=== PATIENT | male | born 1940 | race Caucasian/White ===

== ENCOUNTER 2016-08-12 11:04 | Inpatient (IN) | payer MEDICARE ==
[~2016-08-12] VITALS: Ht 179.1 cm; Wt 95.8 kg
[2016-08-12 11:06] VITALS: BP 136/70; PULSE 112; RESP 26; O2SAT 91
--- NOTE | 2016-08-12 11:11 | ED.REPORT ---
HPI-Dyspnea / Wheezing Date of Service Aug 12, 2016 ED Provider: Arnold Tolentino MD Pt is a 75 y.o. male who presents to the ED from c/o a cough onset 4 days ago. Pt reports associated fever, chills, SOB, weakness, myalgias and dysuria. He denies chest pain, abdominal pain, and vomiting. Pt denies recent hospitalization or antibiotic use. Nursing Notes Stated Complaint: COUGH,FROM URGENT CARE Chief Complaint: Respiratory Complaints Nursing Notes Reviewed: Yes Allergies: Coded Allergies: No Known Allergies (Unverified , 08/12/16) Scheduled Doxazosin Mesylate (Doxazosin Mesylate) 1 Mg Tablet 1 MG PO HS Fluorometholone Acetate (Flarex) 5 Ml Drops.susp 5 ML OP QID Prednisolone Acetate (Prednisolone Acetate) 5 Ml Drops.susp 5 ML OP HS General Time Seen by MD: 11:11 Chief Complaint Cough Hx Obtained From: Patient Arrived By: Walk-in Sudden in Onset?: Yes Onset Occurred: 4 days ago Symptom Duration: Since onset Past Medical History Past Medical History None reported Past Surgical History None reported Ambulatory Status Independent Review of Systems Constitutional: Reports: Chills, Fever, Weakness - generalized Respiratory: Reports: Non-productive cough, Shortness of breath Cardiovascular: Denies: Chest pain Musculoskeletal: Reports: Myalgia Complete sys rev & neg: except as marked. GI: Denies: Abdominal pain, Vomiting Physical Exam Initial Vital Signs Vital Signs (First) Date Time Temp Pulse Resp B/P Pulse Ox O2 Delivery O2 Flow Rate FiO2 08/12/16 11:06 37.4 112 26 136/70 91 Room Air 08/12/16 13:17 2 Initial VS: Reviewed Head / Eyes: Atraumatic, Normocephalic, PERRL Abdomen / GI: No distention Extremities: Vascular intact, Neuro intact Skin: Warm, Dry, No cyanosis Neurologic: Alert, Oriented, Nonfocal Psychiatric: Mood/affect normal, Behavior normal, Normal thought content General/Constitutional: Awake, Alert, Well appearing, Well developed, Well hydrated, Well nourished, Not toxic appearing Neck: Atraumatic Respiratory / Chest: Atraumatic, Breath sounds = bilat, No wheezing Pt appears dyspneic. Scattered rhonchi. Cardiovascular: Heart sounds NL, Cap refill not delayed, Peripheral circulation NL Heart Rate / Rhythm: Positive: Tachycardia ENT: Atraumatic, Airway patent Mouth: Positive: Mucous membranes dry Interpretation & Diagnostics Lab Results Interpretation Result Diagram: 08/12/16 1155 08/12/16 1155 Test 08/12/16 11:50 08/12/16 11:55 Urine Color Yellow (YELLOW) Urine Appearance Clear (CLEAR,HAZY) Urine pH 5.5 (5.0-8.0) Urine Specific [place] 1.015 (1.003-1.035) Urine Protein 100mg/dL (NEG,TRACE) Urine Glucose (UA) Negativemg/dL (NEGATIVE) Urine Ketones Tracemg/dL (NEGATIVE) Urine Occult Blood Large (NEGATIVE) Urine Nitrite Negative (NEGATIVE) Urine Bilirubin Negative (NEGATIVE) Urine Urobilinogen 4.0mg/dL (NORMAL) Urine Leukocyte Esterase Negative (NEGATIVE) Urine RBC 3-10/hpf (0-2) Urine WBC 0-5/hpf (0-5) Urine Epithelial Cells Few/hpf (NONE-MOD) Urine Crystals Amorphous urates (NONE Urine Bacteria Few/hpf (NONE-FEW) Urine Hyaline Casts Rare/lpf (NONE) Urine Granular Casts None seen (NONE SEEN) Urine Waxy Casts None seen (NONE SEEN) Urine Red Blood Cell Casts None seen (NONE SEEN) Urine White Blood Cell Casts None seen (NONE SEEN) Urine Mucus Present (None Seen) Urine Trichomonas None seen (NONE SEEN) Urine Yeast None (NONE SEEN) Urinalysis Comment None Urine Culture Reflexed Not indicated White Blood Count 15.5th/mm3 (3.8-10.1) Red Blood Count 5.25mil/mm3 (4.40-5.80) Hemoglobin 15.2g/dL (13.8-17.2) Hematocrit 43.5% (41.0-50.0) Mean Corpuscular Volume 82.9fL (81-100) Mean Corpuscular Hemoglobin 29.0pg (27.0-35.0) Mean Corpuscular Hemoglobin Concent 34.9% (32.0-37.0) Red Cell Distribution Width 13.8% (12.3-15.4) Platelet Count 223bil/L (150-400) Neutrophils (%) (Auto) 92.8% (40-74) Lymphocytes (%) (Auto) 3.4% (14-46) Monocytes (%) (Auto) 3.4% (4-12) Eosinophils (%) (Auto) 0% (0-5) Basophils (%) (Auto) 0.1% (0-3) Hold Blue Top Tube Received (Received) Sodium Level 128mEq/L (134-144) Potassium Level 4.0mEq/L (3.5-5.2) Chloride Level 90mEq/L (97-108) Carbon Dioxide Level 19mmol/L (18-29) Blood Urea Nitrogen 18mg/dL (8-27) Creatinine 1.33mg/dL (0.76-1.27) Estimat Glomerular Filtration Rate 55mL/min (>59) Glucose Level 129mg/dL (60-99) Lactic Acid Level 1.7mmol/L (0.4-2.0) Calcium Level 8.7mg/dL (8.5-10.1) Total Bilirubin 1.1mg/dL (0.0-1.2) Aspartate Amino Transf (AST/SGOT) 26U/L (0-50) Alanine Aminotransferase (ALT/SGPT) 19U/L (0-44) Alkaline Phosphatase 70U/L (25-160) Troponin T < 0.010ug/L (0.0-0.011) Pro-B-Type Natriuretic Peptide 506.2pg/mL (0-486) Total Protein 8.3g/dL (6.4-8.4) Albumin 3.7g/dL (3.4-5.0) Hold Red Top Tube Received (Received) Lab Results Interpretation: Flu A & B negative Bedside glucose is 146 General Lab Results Interp 1: CBC - leukocytosis ( ) ECG Interpretation ECG Interpretation: LVH Prolonged QT interval Time: 11:22 Interpreted by: ED physician Normal ECG Interpretation: Normal sinus rhythm Rhythm / Conduction: Tachycardia (104) X-Ray Chest Interpretation Chest Xray Interpretation: IMPRESSION: Left lower lobe pneumonia. Dictated by: Ada Anderson MD, PhD on 08/12/2016 at 12:17 Approved by: Ada Anderson MD, PhD on 08/12/2016 at 12:17 Re-Eval/Medical Decision Med Decision/Clinical Course 75-year-old male with a fever or dyspnea and cough. He is tachypneic and tachycardic on arrival with a 91% room air oxygen saturation. There is a left lower infiltrate, the patient has been blood cultured lactate is normal with given a 1 L saline bolus and Rocephin and azithromycin IV covering for community-acquired pneumonia. Influenza screen is negative. Will be admitted to the hospitalist service. Source of Hx: Old records Re-Evaluation/Progress #1: Time of Eval: 12:42 Re-Evaluation/Progress Note: Pt rechecked. Pt states he feels hypoglycemic, pt has ordered food. Discussed imaging results and need for admit. Pt understands and agrees with plan. Discussed code status, pt is full code. Re-Evaluation/Progress #2: Time of Eval: 12:51 Re-Evaluation/Progress Note: Pt blood glucose is 146. Consultation : Referral / Consult Name: Eulogio Price MD Call Returned at: 13:44 Pcts: Accepts admit Note: Discussed pt condition, accepts admit. Counseled Regarding: Diagnosis, Lab results Discharge & Departure Impression: Primary Impression: Left lower lobe pneumonia Pneumonia type: due to unspecified organism Qualified Code: J18.1 - Lobar pneumonia, unspecified organism Disposition: ADMITTED TO HOSPITAL Discharge Condition All VS Reviewed: Yes Condition: Improved Referrals: Cole Diaz MD (PCP) [facility] Attestation Portions of this note were transcribed by Annemarie Peña. I, Dr. Tolentino personally performed the history, physical exam and medical decision-making; I reviewed and confirmed the accuracy of the information in the transcribed note. Signed by: Danielle Cool, 08/12/16 and 1346. copies to: Cole Diaz MD, Donald L MD Aug 12, 2016 11:11 ANNEMARIE PEÑA Aug 12, 2016 11:17
[2016-08-12 12:09] LABS: BASOPHILS % (AUTO) 0.1 % (0-3); EOSINOPHILS % (AUTO) 0 % (0-5); MONOCYTES % (AUTO) 3.4 % (4-12); Mean Corpuscular Volume 82.9 fL (81-100); NEUTROPHILS % (AUTO) 92.8 % (40-74); Platelet Count 223 bil/L (150-400)
--- NOTE | 2016-08-12 12:19 | DRSVH ---
PROCEDURE: X-RAY CHEST, TWO VIEWS ([id number]) INDICATIONS: cough, dyspnea TECHNIQUE: 2 views of the chest were acquired. COMPARISON: None. FINDINGS: Surgical changes and devices: None. Lungs and pleura: No pleural effusions or pneumothorax. Patchy is opacity noted in the posterior asp ect of the left lower lobe most compatible with pneumonia. Mediastinum: Mediastinal contours are normal. Heart size is normal. Bones and chest wall: No suspicious bony abnormalities. Soft tissues appear unremarkable. IMPRESSION: Left lower lobe pneumonia. Dictated by: Ada Anderson MD, PhD on 08/12/2016 at 12:17 Approved by: Ada Anderson MD, PhD on 08/12/2016 at 12:17
[2016-08-12 12:42] LABS: APPEARANCE,URINE CLEAR (CLEAR,HAZY); COLOR,URINE YELLOW (YELLOW); OCCULT BLOOD,URINE LARGE (NEGATIVE); PH,URINE 5.5 (5.0-8.0)
[2016-08-12] MEDS ORDERED: Azithromycin Inj 500 MG in Dextrose 5% w/Vial Mate 250 ML IV ONE (12:45)
[2016-08-12] MEDS ORDERED: cefTRIAXone Inj 2,000 MG in Dextrose 5% Minibag Plus 50 ML IV ONE (12:45)
[2016-08-12] MEDS ORDERED: 0.9% Sodium Chloride 1,000 ML IV ONE (12:45)
[2016-08-12 12:55] LABS: TROPONIN T < 0.010 ug/L (0.0-0.011)
[2016-08-12 13:17] VITALS: BP 136/68; PULSE 111; RESP 29
[2016-08-12] MEDS ORDERED: Polyethylene Glycol (PEG) 17 Gm Powder PO PRN (13:45)
[2016-08-12] MEDS ORDERED: Ondansetron 2 mg/mL 2 mL Inj IVPUSH PRN (13:45)
[2016-08-12] MEDS ORDERED: Alum-Mag Hydrox-Simeth 30 mL Suspension PO PRN (13:45)
[2016-08-12] MEDS ORDERED: Albuterol 2.5 mg/3 mL Inhalation Solution NEB PRN (13:50)
--- NOTE | 2016-08-12 13:55 | PCM.HPMED ---
Subjective Date of Service Aug 12, 2016 Primary Provider: Admitting Physician: Primary Care Physician: Cole Diaz MD Attending Physician: Chief Complaint: Short of breath, cough History of Present Illness: 75-year-old male with minimal medical problems has been sick for the last 5 days. For the last 3 days he has had having subjective fevers and shaking chills. He has been having a cough and shortness of breath. Finally he let his call the [facility] which directed them to the emergency room for evaluation where he was found to have left lower lobe pneumonia. He has not been eating much he has not been eating much and he has been having a cough. He has been having generalized aches and pains with bilateral shoulder pain likely related to coughing. Review of Systems: Gen.: No weight loss weight gain + fevers and chills Eyes: no visual disturbances or blurring vision HEENT: No nose/throat drainage, no pain in ears or throat, no hearing loss Lymph: No lymph nodes noted Cardiac: No chest pain, orthopnea, PND, palpitations , pedal edema or dyspnea on exertion Pulmonary: no cough, wheezing or bringing up of sputum GI: No anorexia nausea vomiting blood or black in the stool : no dysuria hematuria urinary frequency ++decrease in urine output Musculoskeletal: Joint swelling no joint pain ++ generalized pains and shoulder pain as described above Neuro: No syncope, seizures no loss of consciousness no new focal weakness, numbness or tingling Psychiatric: New new anxiety insomnia or depression Endocrine: No new heat or cold intolerances polyuria or polydipsia Hematology: No lymphadenopathy or easy bleeding or bruising noted skin: No new rashes, stasis dermatitis Allergies Coded Allergies: No Known Allergies (Unverified , 08/12/16) Home Medications Doxazosin 1 mg at bedtime, Prednisolone eyedrop and a couple others still being inputted PM BPH 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 Well-nourished male Eyes- open conjunctiva clear, pupils equal nonicteric Mouth- oral mucosa moist, no exudate ENT- ears normal, nose normal Neck- supple/trach midline CVS- RRR no murmur or gallop Lungs CTA diminished breath sounds left base with some egophony and crackles given upper airway sounds surprisingly clear GI- NABS/NT soft Musc- moving 4 no obvious deformity Neuro- cranial nerves II through XII intact to gross examination, nonfocal Skin- warm and dry, no rashes/lesions/wounds noted Psych- pleasant and appropriate, Lab and Diagnostics Result Diagram: 08/12/16 1155 08/12/16 1155 Microbiology Influenza screen negative X-Rays, CTs and MRIs X-RAY CHEST, TWO VIEWS: Ada Anderson MD, PhD on 08/12/2016 at 12:17 IMPRESSION: Left lower lobe pneumonia. Dictated by: Ada Anderson MD, PhD on 08/12/2016 at 12:17 12-lead ECG Rate 104, QTC 511 ms may be actually real, this is concurrently reviewed by myself Albert 08/12 Sinus or ectopic atrial tachycardia . Prolonged MA interval . Left ventricular hypertrophy . Prolonged QT interval Assessment & Plan 75-year-old male with no past medical history presents to ER 08/12 with left lower lobe pneumonia 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 is BPH-doxazosin 1 mg at bedtime s/p corneal transplant-continue eyedrops as previously -Patient requesting aggressive blood pressure/cough control so as to spare eyes/ cornea any trauma so I am writing hydralazine 25 mg every 4 when necessary SBP greater than 140 Prophylaxis- DVT with SCDs/enoxaparin, GI not indicated Disposition- full code from home Eulogio Price MD Aug 12, 2016 13:55
[2016-08-12 14:38] VITALS: BP 125/47; PULSE 98; O2SAT 96
[2016-08-12] MEDS: 0.9% Sodium Chloride 1,000 ML IV SCH (15:28)
[2016-08-12 15:49] VITALS: BP 144/74; PULSE 96; RESP 26; O2SAT 96
[2016-08-12] MEDS ORDERED: Albuterol 2.5 mg/3 mL Inhalation Solution NEB SCH (16:30)
[2016-08-12] MEDS ORDERED: DOXA1TAB2 PO (16:45)
[2016-08-12] MEDS ORDERED: PRED5DRO6 OP (16:49)
[2016-08-12] MEDS ORDERED: FLUO5DRO OP (16:49)
[2016-08-12] MEDS: Codeine-guaiFENesin 10 mL Syrup PO PRN (20:03)
[2016-08-12 20:45] VITALS: BP 117/69; PULSE 76; RESP 22; O2SAT 95
[2016-08-12] MEDS ORDERED: PrednisoLONE 1% 5 mL Ophthalmic Suspension LEFT_EYE SCH (21:00)
[2016-08-13] VITALS (7 sets, daily range): BP systolic 122–129; BP diastolic 62–72; PULSE 76–94; RESP 22–28; O2SAT 92–94
[2016-08-13] MEDS: 0.9% Sodium Chloride 1,000 ML IV SCH (03:03)
[2016-08-13] MEDS: Codeine-guaiFENesin 10 mL Syrup PO PRN ×3 (03:06→22:56)
[2016-08-13 08:13] LABS: BASOPHILS % (AUTO) 0.1 % (0-3); EOSINOPHILS % (AUTO) 0 % (0-5); MONOCYTES % (AUTO) 2.7 % (4-12); Mean Corpuscular Hemoglobin 28.8 pg (27.0-35.0); Mean Corpuscular Volume 81.7 fL (81-100); NEUTROPHILS % (AUTO) 93.8 % (40-74); Platelet Count 208 bil/L (150-400)
[2016-08-13] MEDS: Albuterol 2.5 mg/3 mL Inhalation Solution NEB SCH ×4 (08:30→20:17)
[2016-08-13] MEDS ORDERED: Azithromycin Inj 500 MG in Dextrose 5% w/Vial Mate 250 ML IV SCH (08:30)
[2016-08-13 08:36] LABS: Magnesium 1.8 mg/dL (1.6-2.6)
--- NOTE | 2016-08-13 13:50 | PCM.PNMED ---
Subjective Date of Service Aug 13, 2016 Subjective Feeling better, still very weak. Not coughing too much breathing is better but not good. No chest pain, no nausea or vomiting. Exam Vital Signs Vital Sign - Last Date Time Temp Pulse Resp B/P Pulse Ox O2 Delivery O2 Flow Rate FiO2 08/13/16 11:00 90 28 93 Nasal Cannula 2.00 08/13/16 04:47 37.3 128/71 Intake and Output 08/12/16 08/12/16 08/13/16 Cumulative From/Thru 15:00 23:00 07:00 08/12/16 11:06 - 08/13/16 04:56 Intake Total 1000 ml 365 ml 400 ml 1765 ml Output Total 650 ml 650 ml Balance 1000 ml 365 ml -250 ml 1115 ml Intake Oral 400 ml 400 ml IV Total 1000 ml 365 ml 1365 ml Output Urine Total 650 ml 650 ml Exam Gen.- A+ O 3 mild min resp dist, sitting up eating breakfast, looks tired and ill but better than 08/13 Eyes- open conjunctiva clear, pupils equal nonicteric ENT- ears normal, nose normal Neck- supple/trach midline CVS- RRR no murmur or gallop Lungs CTA diminished breath sounds left base with some egophony and crackles given upper airway sounds surprisingly clear GI- NABS/NT soft Musc- moving 4 no obvious deformity Neuro- cranial nerves II through XII intact to gross examination, nonfocal Skin- warm and dry, no rashes/lesions/wounds noted Psych- pleasant and appropriate, Lab and Diagnostics Result Diagram: 08/13/16 0800 08/13/16 0800 Microbiology Influenza screen negative X-Rays, CTs and MRIs X-RAY CHEST, TWO VIEWS: Ada Anderson MD, PhD on 08/12/2016 at 12:17 IMPRESSION: Left lower lobe pneumonia. Dictated by: Ada Anderson MD, PhD on 08/12/2016 at 12:17 12-lead ECG Rate 104, QTC 511 ms may be actually real, this is concurrently reviewed by myself Albert 08/12 Sinus or ectopic atrial tachycardia . Prolonged MI interval . Left ventricular hypertrophy . Prolonged QT interval Assessment & Plan 75-year-old male with no past medical history presents to ER 08/12 with left lower lobe pneumonia 08/13 general agreement that the patient's feeling better, he is being more frequently. WBCs are up, sodium is up to 1:30. I am going to stop the IV fluids as he is urinating quite frequently. Otherwise continuing bronchodilators and antibiotics as previously. Ordering physical therapy to evaluate his generalized state of weakness/debility. I explained to the patient and his that it would not be surprising that he was here for total of 5 days he may do better than that. LLL CAP-Zithromax/Rocephin 6/3 -Albuterol every 4 while awake and every 2 as needed, -Cough suppressants as he is very worried about racing his eye pressure and causing trauma to his transplanted cornea is BPH-doxazosin 1 mg at bedtime s/p corneal transplant-continue eyedrops as previously -Patient requesting aggressive blood pressure/cough control so as to spare eyes/ cornea any trauma so I am writing hydralazine 25 mg every 4 when necessary SBP greater than 140 Prophylaxis- DVT with SCDs/enoxaparin, GI not indicated Disposition- full code from home Eulogio Price MD Aug 13, 2016 13:50
[2016-08-13] MEDS: PrednisoLONE 1% 5 mL Ophthalmic Suspension LEFT_EYE SCH ×3 (14:26→22:56)
[2016-08-13] MEDS: cefTRIAXone Inj 2,000 MG in Dextrose 5% Minibag Plus 50 ML IV SCH (14:27)
[2016-08-13] MEDS ORDERED: Furosemide 10 mg/mL 4 mL Inj IVPUSH ONE (21:30)
[2016-08-13] MEDS: Polyethylene Glycol (PEG) 17 Gm Powder PO SCH (22:55)
[2016-08-14] VITALS (9 sets, daily range): BP systolic 111–157; BP diastolic 67–77; PULSE 63–96; RESP 20–24; O2SAT 91–97
[2016-08-14 05:34] LABS: BASOPHILS % (AUTO) 0.1 % (0-3); EOSINOPHILS % (AUTO) 0 % (0-5); MONOCYTES % (AUTO) 3.8 % (4-12); Mean Corpuscular Hemoglobin 28.9 pg (27.0-35.0); Mean Corpuscular Volume 82.3 fL (81-100); NEUTROPHILS % (AUTO) 92.3 % (40-74); Platelet Count 211 bil/L (150-400)
[2016-08-14] MEDS: PrednisoLONE 1% 5 mL Ophthalmic Suspension LEFT_EYE SCH ×4 (06:21→21:24)
[2016-08-14] MEDS: Albuterol 2.5 mg/3 mL Inhalation Solution NEB SCH ×4 (08:23→20:05)
--- NOTE | 2016-08-14 10:07 | DRSVH ---
PROCEDURE: CT ANGIO CHEST PULMONARY EMBOLISM ([id number]) INDICATIONS: Pneumonia with worsening hypoxemia TECHNIQUE: After the administration of intravenous contrast, 2 mm thick sections acquired from the pulmonary api subhash to the posterior costophrenic angles. 3-dimensional maximum intensity projection (MIP) coronal a nd sagittal reformats were then acquired through the thorax. For radiation dose reduction, the follo wing was used: automated exposure control, adjustment of mA and/or kV according to patient size. COMPARISON: [facility], CR, XR CHEST 2VW, 08/12/2016, 11:17. FINDINGS: Image quality: There is respiratory motion artifact limiting evaluation. Pulmonary arteries: Pulmonary arteries are normal in size, and demonstrate no intraluminal filling d efects to suggest central pulmonary embolism in the main or lobar pulmonary arteries. Evaluation of segmental and subsegmental branches is limited by respiratory motion artifact. Lungs and pleura: There is lobar consolidation within the left lower lobe with air bronchograms consi stent with pneumonia. There is small bilateral pleural effusions with associated compressive atelect asis also noted in the lower lobes. Evaluation for focal lesions is limited due to respiratory motio n artifact. There are indistinct ground glass opacities bilaterally with areas of slight septal thic kening suggesting mild pulmonary edema although evaluation is limited due to motion artifact. The tr achea and central airways appear patent. Mediastinum: Heart size is normal, without pericardial effusion. No mediastinal or hilar adenopathy . Thoracic aorta is normal in caliber and enhancement. Esophagus is normal in caliber, with a small hiatal hernia. Bones and chest wall: No suspicious bony lesions. Ribs and thoracic spine appear intact throughout. Thyroid gland demonstrates no discrete nodules. No axillary or supraclavicular adenopathy. Abdomen: Visualized upper abdomen demonstrates a small hypervascular focus within the right hepatic dome anteriorly measuring 5 mm. There is thickening of the adrenal glands bilaterally without discre te nodule. Colonic diverticulosis is noted. IMPRESSION: 1. No evidence of pulmonary fluid in the central pulmonary arteries but evaluation of segmental and subsegmental branches is limited due to respiratory motion. 2. Left lower lobe consolidation consistent with lobar pneumonia. 3. Small bilateral pleural effusions with compressive atelectasis. 4. Suggestion of pulmonary edema in the lungs with evaluation limited due to motion artifact. 5. Small hypervascular focus within the right hepatic dome may represent a flash filling hemangioma but is nonspecific. Further evaluation may be obtained with a liver protocol CT or MRI. Dictated by: Minor Pineda M.D. on 08/14/2016 at 9:57 Approved by: Minor Pineda M.D. on 08/14/2016 at 10:05
[2016-08-14] MEDS: Polyethylene Glycol (PEG) 17 Gm Powder PO SCH (11:03)
[2016-08-14] MEDS: cefTRIAXone Inj 2,000 MG in Dextrose 5% Minibag Plus 50 ML IV SCH (14:32)
--- NOTE | 2016-08-14 15:40 | PCM.PNMED ---
Subjective Date of Service Aug 14, 2016 Subjective Patient feels like his breathing is better and is not having chest pain, nausea or vomiting. Exam Vital Signs Vital Sign - Last Date Time Temp Pulse Resp B/P Pulse Ox O2 Delivery O2 Flow Rate FiO2 08/14/16 14:16 38.4 96 20 125/68 91 Nasal Cannula 2.00 Intake and Output 08/13/16 08/13/16 08/14/16 Cumulative From/Thru 15:00 23:00 07:00 08/12/16 11:06 - 08/14/16 06:30 Intake Total 700 ml 868 ml 300 ml 3633 ml Output Total 675 ml 1325 ml Balance 700 ml 868 ml -375 ml 2308 ml Intake Oral 868 ml 300 ml 1568 ml IV Total 700 ml 2065 ml Output Urine Total 675 ml 1325 ml # Voids 2 3 5 # Bowel Movements 0 0 0 Exam Gen.- A+ O 3 mild min resp dist, patient still looks quite ill Eyes- open conjunctiva clear, pupils equal nonicteric ENT- ears normal, nose normal Neck- supple/trach midline CVS- RRR no murmur or gallop Lungs CTA diminished breath sounds left base with some egophony and crackles given upper airway sounds surprisingly clear GI- NABS/NT soft Musc- moving 4 no obvious deformity Neuro- cranial nerves II through XII intact to gross examination, nonfocal Skin- warm and dry, no rashes/lesions/wounds noted Psych- pleasant and appropriate, Lab and Diagnostics Result Diagram: 08/14/16 0525 08/14/16 0525 Microbiology Influenza screen negative X-Rays, CTs and MRIs CT ANGIO CHEST PULMONARY EMBOLISM: Minor Pineda M.D. on 08/14/2016 at 10:05 personal/concurrently reviewed by Albert 08/14 1. No evidence of pulmonary fluid in the central pulmonary arteries but evaluation of segmental and subsegmental branches is limited due to respiratory motion. 2. Left lower lobe consolidation consistent with lobar pneumonia. 3. Small bilateral pleural effusions with compressive atelectasis. 4. Suggestion of pulmonary edema in the lungs with evaluation limited due to motion artifact. 5. Small hypervascular focus within the right hepatic dome may represent a flash filling hemangioma but is nonspecific. Further evaluation may be obtained with a liver protocol CT or MRI. Approved by: Minor Pineda M.D. on 08/14/2016 at 10:05 X-RAY CHEST, TWO VIEWS: Ada Anderson MD, PhD on 08/12/2016 at 12:17 IMPRESSION: Left lower lobe pneumonia. Dictated by: Ada Anderson MD, PhD on 08/12/2016 at 12:17 12-lead ECG Rate 104, QTC 511 ms may be actually real, this is concurrently reviewed by myself Albert 08/12 Sinus or ectopic atrial tachycardia . Prolonged [place] interval . Left ventricular hypertrophy . Prolonged QT interval Assessment & Plan 75-year-old male with no past medical history presents to ER 08/12 with left lower lobe pneumonia 08/13 general agreement that the patient's feeling better, he is being more frequently. WBCs are up, sodium is up to 130. I am going to stop the IV fluids as he is urinating quite frequently. Otherwise continuing bronchodilators and antibiotics as previously. Ordering physical therapy to evaluate his generalized state of weakness/debility. I explained to the patient and his that it would not be surprising that he was here for total of 5 days he may do better than that. atient continues to be quite ill and febrile but slowly making progress.I am not giving any more furosemide normally given IV fluids will manage electrolytes and CBC. Continue bronchodilators/antibiotics as previously. Tincture of time. Hyponatremia/AK I- patient got dose of furosemide in addition to having IV fluids discontinued but it did help his breathing. No action at this point time we will continue to monitor. Leukocytosis/anemia- likely all secondary to critical illness 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 is -CT chest obtained to evaluate anatomy better and rule out PE shows substantial pneumonia much more so than CXR BPH-doxazosin 1 mg at bedtime s/p corneal transplant-continue eyedrops as previously -Patient requesting aggressive blood pressure/cough control so as to spare eyes/ cornea any trauma so I am writing hydralazine 25 mg every 4 when necessary SBP greater than 140 Prophylaxis- DVT with SCDs/enoxaparin, GI not indicated Disposition- full code from home Eulogio Price MD Aug 14, 2016 15:40
[2016-08-15] VITALS (7 sets, daily range): BP systolic 117–138; BP diastolic 60–71; PULSE 80–91; RESP 20; O2SAT 92–95
[2016-08-15 06:00] LABS: BASOPHILS % (AUTO) 0.1 % (0-3); EOSINOPHILS % (AUTO) 0.1 % (0-5); MONOCYTES % (AUTO) 3.8 % (4-12); Mean Corpuscular Hemoglobin 28.6 pg (27.0-35.0); Mean Corpuscular Volume 83.3 fL (81-100); NEUTROPHILS % (AUTO) 91.2 % (40-74); Platelet Count 253 bil/L (150-400)
[2016-08-15 06:09] LABS: Magnesium 2.1 mg/dL (1.6-2.6)
[2016-08-15] MEDS: PrednisoLONE 1% 5 mL Ophthalmic Suspension LEFT_EYE SCH ×4 (06:45→20:17)
[2016-08-15] MEDS: Albuterol 2.5 mg/3 mL Inhalation Solution NEB SCH ×4 (08:10→21:20)
[2016-08-15] MEDS: Polyethylene Glycol (PEG) 17 Gm Powder PO SCH (08:30)
--- NOTE | 2016-08-15 13:18 | PCM.PNMED ---
Subjective Date of Service Aug 15, 2016 Subjective Patient started to feel little bit better. Still short of breath but stronger, no chest pain no nausea or vomiting Exam Vital Signs Vital Sign - Last Date Time Temp Pulse Resp B/P Pulse Ox O2 Delivery O2 Flow Rate FiO2 08/15/16 12:06 89 20 93 Nasal Cannula 1.00 08/15/16 03:04 36.8 117/60 Intake and Output 08/14/16 08/14/16 08/15/16 Cumulative From/Thru 15:00 23:00 07:00 08/12/16 11:06 - 08/15/16 06:39 Intake Total 673 ml 300 ml 4606 ml Output Total 550 ml 350 ml 2225 ml Balance 123 ml -50 ml 2381 ml Intake Oral 673 ml 300 ml 2541 ml IV Total 2065 ml Output Urine Total 550 ml 350 ml 2225 ml # Voids 2 3 10 # Bowel Movements 1 1 2 Exam Gen.- A+ O 3 mild min resp dist, patient disheveled but does not look quite as ill as he has. He is able to sit up in bed and at the bedside to look at his films that I showed him with minimal assist Eyes- open conjunctiva clear, pupils equal nonicteric ENT- ears normal, nose normal Neck- supple/trach midline CVS- RRR no murmur or gallop Lungs CTA airway sounds surprisingly clear, moving air well some coarse breath sounds but that is about it GI- NABS/NT soft Musc- moving 4 no obvious deformity Neuro- cranial nerves II through XII intact to gross examination, nonfocal Skin- warm and dry, no rashes/lesions/wounds noted Psych- pleasant and appropriate, Lab and Diagnostics Result Diagram: 08/15/16 0530 08/15/16 0530 Microbiology Influenza screen negative X-Rays, CTs and MRIs CT ANGIO CHEST PULMONARY EMBOLISM: Minor Pineda M.D. on 08/14/2016 at 10:05 personal/concurrently reviewed by Albert 08/14 1. No evidence of pulmonary fluid in the central pulmonary arteries but evaluation of segmental and subsegmental branches is limited due to respiratory motion. 2. Left lower lobe consolidation consistent with lobar pneumonia. 3. Small bilateral pleural effusions with compressive atelectasis. 4. Suggestion of pulmonary edema in the lungs with evaluation limited due to motion artifact. 5. Small hypervascular focus within the right hepatic dome may represent a flash filling hemangioma but is nonspecific. Further evaluation may be obtained with a liver protocol CT or MRI. Approved by: Minor Pineda M.D. on 08/14/2016 at 10:05 X-RAY CHEST, TWO VIEWS: Ada Anderson MD, PhD on 08/12/2016 at 12:17 IMPRESSION: Left lower lobe pneumonia. Dictated by: Ada Anderson MD, PhD on 08/12/2016 at 12:17 12-lead ECG Rate 104, QTC 511 ms may be actually real, this is concurrently reviewed by myself Radvany 08/12 Sinus or ectopic atrial tachycardia . Prolonged IA interval . Left ventricular hypertrophy . Prolonged QT interval Assessment & Plan 75-year-old male with no past medical history presents to ER 08/12 with left lower lobe pneumonia 08/13 general agreement that the patient's feeling better, he is being more frequently. WBCs are up, sodium is up to 130. I am going to stop the IV fluids as he is urinating quite frequently. Otherwise continuing bronchodilators and antibiotics as previously. Ordering physical therapy to evaluate his generalized state of weakness/debility. I explained to the patient and his that it would not be surprising that he was here for total of 5 days he may do better than that. 6/5patient continues to be quite ill and febrile but slowly making progress.I am not giving any more furosemide normally given IV fluids will manage electrolytes and CBC. Continue bronchodilators/antibiotics as previously. Tincture of time. 6 sodium approximately stable, leukocytosis also approximately stable but clinically patient is responding to therapy continue following basic metabolic and CBC without changes today. Patient may be dischargeable with oxygen and nebulizers 08/16. Hyponatremia/AK I- patient got dose of furosemide in addition to having IV fluids discontinued but it did help his breathing. No action at this point time we will continue to monitor. 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
[2016-08-15] MEDS ORDERED: 0.9% Sodium Chloride 250 ML ONE (14:01)
[2016-08-15] MEDS: cefTRIAXone Inj 2,000 MG in Dextrose 5% Minibag Plus 50 ML IV SCH (14:02)
[2016-08-16 02:40] VITALS: O2SAT 87
[2016-08-16 02:41] VITALS: O2SAT 93
[2016-08-16 04:26] VITALS: BP 121/66; PULSE 79; RESP 18; O2SAT 93
[2016-08-16] MEDS: PrednisoLONE 1% 5 mL Ophthalmic Suspension LEFT_EYE SCH ×2 (06:11→10:28)
[2016-08-16] MEDS: Codeine-guaiFENesin 10 mL Syrup PO PRN (07:12)
[2016-08-16] MEDS: Albuterol 2.5 mg/3 mL Inhalation Solution NEB SCH ×2 (07:36→11:30)
[2016-08-16 07:38] VITALS: PULSE 73; RESP 22; O2SAT 92
[2016-08-16 08:21] LABS: BASOPHILS % (AUTO) 0.1 % (0-3); EOSINOPHILS % (AUTO) 0.8 % (0-5); MONOCYTES % (AUTO) 4.6 % (4-12); Mean Corpuscular Hemoglobin 28.9 pg (27.0-35.0); Mean Corpuscular Volume 84.1 fL (81-100); NEUTROPHILS % (AUTO) 85.9 % (40-74); Platelet Count 335 bil/L (150-400)
[2016-08-16] MEDS: Polyethylene Glycol (PEG) 17 Gm Powder PO SCH (08:30)
[2016-08-16 11:30] VITALS: PULSE 80; RESP 20; O2SAT 93
--- NOTE | 2016-08-16 12:25 | PCM.DIMED ---
Discharge Instructions Date of Service Aug 16, 2016 Dates of Hospitalization Aug 12, 2016 at 14:07 Discharge Diagnosis Discharge Diagnosis Left lower lobe pneumonia Activity Discharge Activity: No restrictions Call your provider Call your provider for: Fever or Chills, Shortness of breath, Chest pain Patient Instructions Patient Instructions Finish her antibiotics and follow up with her primary care provider in the next week or so Follow-up Provider: Cole Diaz MD Follow-up with PCP in: 1 week (just to verify oxygen needs are diminishing and breathing is improving and all labs have normalized.) Eulogio Price MD Aug 16, 2016 12:25
[2016-08-16] MEDS ORDERED: LACT1CAP13 PO (12:27)
[2016-08-16] MEDS ORDERED: CEFU500T61 PO (12:27)
[2016-08-16] MEDS ORDERED: ALBU8.5H2 INHALATION (13:54)
[2016-08-16] MEDS ORDERED: ALBU2.5V4 NEB (13:55)
--- NOTE | 2016-08-16 13:58 | PCM.DC.MED ---
Discharge Summary Date of Service Aug 16, 2016 Dates of Hospitalization Date of Hospital Admission Aug 12, 2016 at 14:07 Date of Discharge: Aug 16, 2016 Providers: Admitting Physician: Geremias Price MD Primary Care Physician: Cole Diaz MD Attending Physician: Geremias Price MD Diagnosis at Time of Discharge Diagnosis at Time of Discharge Left lower lobe pneumonia Consultations None Procedures XRay, CTs & MRIs CT ANGIO CHEST PULMONARY EMBOLISM: Minor Pineda M.D. on 08/14/2016 at 10:05 personal/concurrently reviewed by Albert 08/14 1. No evidence of pulmonary fluid in the central pulmonary arteries but evaluation of segmental and subsegmental branches is limited due to respiratory motion. 2. Left lower lobe consolidation consistent with lobar pneumonia. 3. Small bilateral pleural effusions with compressive atelectasis. 4. Suggestion of pulmonary edema in the lungs with evaluation limited due to motion artifact. 5. Small hypervascular focus within the right hepatic dome may represent a flash filling hemangioma but is nonspecific. Further evaluation may be obtained with a liver protocol CT or MRI. Approved by: Minor Pineda M.D. on 08/14/2016 at 10:05 X-RAY CHEST, TWO VIEWS: Ada Anderson MD, PhD on 08/12/2016 at 12:17 IMPRESSION: Left lower lobe pneumonia. Dictated by: Ada Anderson MD, PhD on 08/12/2016 at 12:17 ECG 12 Lead Rate 104, QTC 511 ms may be actually real, this is concurrently reviewed by myself Albert 08/12 Sinus or ectopic atrial tachycardia . Prolonged SC interval . Left ventricular hypertrophy . Prolonged QT interval Brief History 75-year-old male with minimal medical problems has been sick for the last 5 days. For the last 3 days he has had having subjective fevers and shaking chills. He has been having a cough and shortness of breath. Finally he let his call the [facility] which directed them to the emergency room for evaluation where he was found to have left lower lobe pneumonia. He has not been eating much he has not been eating much and he has been having a cough. He has been having generalized aches and pains with bilateral shoulder pain likely related to coughing. Hospital Course 75-year-old male with no past medical history presents to ER 6/3 with left lower lobe pneumonia 6/ general agreement that the patient's feeling better, he is being more frequently. WBCs are up, sodium is up to 130. I am going to stop the IV fluids as he is urinating quite frequently. Otherwise continuing bronchodilators and antibiotics as previously. Ordering physical therapy to evaluate his generalized state of weakness/debility. I explained to the patient and his that it would not be surprising that he was here for total of 5 days he may do better than that. 6/5patient continues to be quite ill and febrile but slowly making progress.I am not giving any more furosemide normally given IV fluids will manage electrolytes and CBC. Continue bronchodilators/antibiotics as previously. Tincture of time. 6 sodium approximately stable, leukocytosis also approximately stable but clinically patient is responding to therapy continue following basic metabolic and CBC without changes today. Patient may be dischargeable with oxygen and nebulizers 08/16. 08/16 patient has weaned off of oxygen for the most part might qualify for it with activity. WBCs are down to 14.8, and sodium is normalized. Patient is ambulated in the hallway at least 50 feet area I am discharging him home we will see if he qualifies for home oxygen. His finish Zithromax and needs to finish 5 more days of cefuroxime at home. He needs bronchodilators. +/-f/u cbc , BMP prior to f/u w/ PCP. 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 Eyes- open conjunctiva clear, pupils equal nonicteric ENT- ears normal, nose normal Neck- supple/trach midline CVS-normal rate Lungs did not auscultate as they always sound clear despite radiographic evidence to the contrary. GI-flat Musc- moving 4 no obvious deformity Neuro- cranial nerves II through XII intact to gross examination, nonfocal Skin- warm and dry, no rashes/lesions/wounds noted Psych- pleasant and appropriate, Test 08/12/16 11:50 08/12/16 11:55 08/15/16 05:00 08/15/16 05:30 Urine Color Yellow (YELLOW) Urine Appearance Clear (CLEAR,HAZY) Urine pH 5.5 (5.0-8.0) Urine Specific [place] 1.015 (1.003-1.035) Urine Protein 100mg/dL (NEG,TRACE) Urine Glucose (UA) Negativemg/dL (NEGATIVE) Urine Ketones Tracemg/dL (NEGATIVE) Urine Occult Blood Large (NEGATIVE) Urine Nitrite Negative (NEGATIVE) Urine Bilirubin Negative (NEGATIVE) Urine Urobilinogen 4.0mg/dL (NORMAL) Urine Leukocyte Esterase Negative (NEGATIVE) Urine RBC 3-10/hpf (0-2) Urine WBC 0-5/hpf (0-5) Urine Epithelial Cells Few/hpf (NONE-MOD) Urine Crystals Amorphous urates (NONE Urine Bacteria Few/hpf (NONE-FEW) Urine Hyaline Casts Rare/lpf (NONE) Urine Granular Casts None seen (NONE SEEN) Urine Waxy Casts None seen (NONE SEEN) Urine Red Blood Cell Casts None seen (NONE SEEN) Urine White Blood Cell Casts None seen (NONE SEEN) Urine Mucus Present (None Seen) Urine Trichomonas None seen (NONE SEEN) Urine Yeast None (NONE SEEN) Urinalysis Comment None Urine Culture Reflexed Not indicated Hold Blue Top Tube Received (Received) Lactic Acid Level 1.7mmol/L (0.4-2.0) Total Bilirubin 1.1mg/dL (0.0-1.2) Aspartate Amino Transf (AST/SGOT) 26U/L (0-50) Alanine Aminotransferase (ALT/SGPT) 19U/L (0-44) Alkaline Phosphatase 70U/L (25-160) Troponin T < 0.010ug/L (0.0-0.011) Pro-B-Type Natriuretic Peptide 506.2pg/mL (0-486) Total Protein 8.3g/dL (6.4-8.4) Albumin 3.7g/dL (3.4-5.0) Hold Red Top Tube Received (Received) Urine Random Sodium 21mEq/L Magnesium Level 2.1mg/dL (1.6-2.6) Test 08/16/16 07:47 White Blood Count 14.8th/mm3 (3.8-10.1) Red Blood Count 4.40mil/mm3 (4.40-5.80) Hemoglobin 12.7g/dL (13.8-17.2) Hematocrit 37.0% (41.0-50.0) Mean Corpuscular Volume 84.1fL (81-100) Mean Corpuscular Hemoglobin 28.9pg (27.0-35.0) Mean Corpuscular Hemoglobin Concent 34.3% (32.0-37.0) Red Cell Distribution Width 14.7% (12.3-15.4) Platelet Count 335bil/L (150-400) Neutrophils (%) (Auto) 85.9% (40-74) Lymphocytes (%) (Auto) 6.4% (14-46) Monocytes (%) (Auto) 4.6% (4-12) Eosinophils (%) (Auto) 0.8% (0-5) Basophils (%) (Auto) 0.1% (0-3) Sodium Level 135mEq/L (134-144) Potassium Level 4.0mEq/L (3.5-5.2) Chloride Level 99mEq/L (97-108) Carbon Dioxide Level 20mmol/L (18-29) Blood Urea Nitrogen 19mg/dL (8-27) Creatinine 1.03mg/dL (0.76-1.27) Estimat Glomerular Filtration Rate 74mL/min (>59) Glucose Level 119mg/dL (60-99) Calcium Level 8.2mg/dL (8.5-10.1) Microbiology Results Influenza screen negative Discharge Medications Discharge Medications Cefuroxime Axetil (Cefuroxime) 500 Mg Tablet 500 MG PO BID Prescribed by: GEREMIAS PRICE MD Doxazosin Mesylate (Doxazosin Mesylate) 1 Mg Tablet 1 MG PO HS (Reported) Fluorometholone Acetate (Flarex) 5 Ml Drops.susp 5 ML OP QID (Reported) Lactobacillus Acidophilus (Acidophilus) 1 Each Capsule 1 EACH PO DAILY Prescribed by: GEREMIAS PRICE MD Prednisolone Acetate (Prednisolone Acetate) 5 Ml Drops.susp 5 ML OP HS (Reported ) Followup Plan Disposition: To home with a walker Follow-up plan Finish antibiotics, use albuterol by nebulizer and metered-dose inhaler, home health. Follow up with primary care provider in the next week. Discharge Activity: No restrictions Patient Instructions Finish her antibiotics and follow up with her primary care provider in the next week or so Follow-up Provider: Cole Diaz MD Follow-up with PCP in: 1 week (just to verify oxygen needs are diminishing and breathing is improving and all labs have normalized.) Time spent Greater than [address] scan shows that this patient almost obliterated his left lower lobe with pneumonia. He is actually responded surprisingly well and quickly. copies to: Cole Diaz MD, Andris E MD Aug 16, 2016 13:57
== END 2016-08-16 14:34 | disposition home or self-care (01) | DRG 194 ==
LOC: SED 11:04 → MPC 14:07
PROVIDERS: ADMIT Hospitalist; ATTEND Hospitalist
DX: J18.1 Lobar pneumonia, unspecified organism (principal); N17.9 Acute kidney failure, unspecified; E87.1 Hypo-osmolality and hyponatremia; E86.0 Dehydration; N40.0 Benign prostatic hyperplasia without lower urinary tract symptoms; Z94.7 Corneal transplant status